=== PATIENT | female | born 1995 ===

== ENCOUNTER 2020-01-03 10:14 | Inpatient (IN) | payer OTHER, SELFPAY ==
[2020-01-03] MEDS: Lactated Ringer's 1,000 ML IV SCH ×2 (10:23→14:05)
[2020-01-03] MEDS ORDERED: Lidocaine 1% (PF) 30 ML VIAL SC PRN (10:33)
[2020-01-03] MEDS ORDERED: Promethazine HCl 25 MG/ML VIAL IM PRN ×2 (10:33→13:29)
[2020-01-03] MEDS ORDERED: Ondansetron PF 4 MG/2 ML Vial IVP PRN ×3 (10:33→17:26)
[2020-01-03] MEDS ORDERED: Docusate 100 MG CAP PO PRN (10:33)
[2020-01-03] MEDS ORDERED: HYDROcodone/Acetaminophen 5/325 mg Tablet PO PRN ×2 (10:33)
[2020-01-03] MEDS ORDERED: NS / Oxytocin 40 units/1000ml 1,000 ML IV PRN (10:33)
[2020-01-03] MEDS ORDERED: hydrALAZINE 20 MG/ML VIAL SLOW IVP PRN ×2 (10:33→17:26)
[2020-01-03] MEDS ORDERED: Butorphanol Tartrate 1 MG/ML VIAL SLOW IVP PRN (10:33)
[2020-01-03] MEDS ORDERED: Misoprostol 200 MCG TAB PR PRN (10:33)
[2020-01-03] MEDS ORDERED: Ibuprofen 800 MG TAB PO PRN (10:33)
[2020-01-03] MEDS ORDERED: Diphenoxylate HCl/Atropine Tablet PO PRN ×2 (10:33)
[2020-01-03] MEDS ORDERED: Acetaminophen 500 MG TAB PO PRN (10:33)
[2020-01-03] MEDS ORDERED: NS w/ Oxytocin 10 units 500 ML IV SCH ×2 (10:45)
[2020-01-03 10:58] VITALS: BMI 36.8
[2020-01-03 11:22] LABS: Hemoglobin 10.2 g/dL (12.0-16.0); Mean Corpuscular HGB CONC 32.3 g/dL (32.0-36.0); Mean Corpuscular Hemoglobin 25.1 pg (27.0-31.0); Mean Corpuscular Volume 77.7 fL (78.0-98.0); Mean Platelet Volume 9.3 fL (7.4-10.4); Platelet Count 316 thou/uL (130-400); RBC Distribution Width 13.8 % (11.5-14.5); Red Blood Cell (RBC) Count 4.06 mill/uL (4.20-5.40); White Blood Cell (WBC) Count 10.9 thou/uL (4.8-10.8)
[2020-01-03 11:38] LABS: HBSAg Index 0.21 S/CO (0-0.99); Hep B Surf Ag Non-Reactive S/CO (NonReactive); Syphilis Antibody Nonreactive (Nonreactive); Syphilis Antibody Index 0.04 S/CO (<1.00 Non-Reactive)
[2020-01-03] MEDS: Ampicillin 2 GM in Sodium Chloride 0.9% 100 ML IVPB SCH (12:47)
[2020-01-03] MEDS ORDERED: Naloxone HCl 0.4 mg/ml Vial IVP PRN ×2 (13:29)
[2020-01-03] MEDS ORDERED: Lactated Ringer's 500 ML IV PRN (13:29)
[2020-01-03] MEDS ORDERED: EPHEDRINE 25 MG/5 ML SYRINGE SLOW IVP PRN (13:29)
[2020-01-03] MEDS ORDERED: diphenhydrAMINE 50 MG/ML VIAL IVP PRN (13:29)
[2020-01-03] MEDS ORDERED: Acetaminophen 325 MG TAB PO PRN (13:29)
[2020-01-03] MEDS ORDERED: Communication Order-Pharmacy FS SCH (13:30)
[2020-01-03] MEDS ORDERED: Fentanyl 4 mcg/Bupivacaine 0.1% Cassette 100 ML EPIDURAL SCH (13:30)
[2020-01-03] MEDS ORDERED: Benzocaine-Menthol 82.5 ML CAN TOP PRN (17:26)
[2020-01-03] MEDS ORDERED: Milk Of Magnesia 30 ML UDCUP PO PRN (17:26)
[2020-01-03] MEDS ORDERED: Bisacodyl 10 MG SUPP PR PRN (17:26)
[2020-01-03] MEDS ORDERED: Preparation H Ointment 28 GM TUBE PR PRN (17:26)
[2020-01-03] MEDS ORDERED: Misoprostol 200 MCG TAB VAG PRN (17:26)
[2020-01-03] MEDS ORDERED: Adacel (T-DAP) 0.5 ML SYRINGE IM ONE (17:26)
[2020-01-03] MEDS ORDERED: Acetaminophen/Codeine 30-300mg Tablet PO PRN ×2 (17:26)
[2020-01-03] MEDS ORDERED: diphenhydrAMINE 25 MG CAP PO PRN (17:26)
[2020-01-03] MEDS ORDERED: Zolpidem Tartrate 5 MG TAB PO PRN (17:26)
[2020-01-03] MEDS ORDERED: Lanolin Ointment 7 GM TUBE TOP PRN (17:26)
[2020-01-03] MEDS ORDERED: NS / Oxytocin 40 units/1000ml 1,000 ML IV SCH (17:30)
[2020-01-03] MEDS ORDERED: Fentanyl 4 mcg/Bup 0.1% Cadd 100 ML ONE (17:47)
[2020-01-03] MEDS: Ibuprofen 800 MG TAB PO SCH (22:03)
[2020-01-03] MEDS: Docusate Calcium (SURFAK) 240 MG CAP PO SCH (22:03)
[2020-01-04 05:33] LABS: Hemoglobin 9.7 g/dL (12.0-16.0); Mean Corpuscular Hemoglobin 26.1 pg (27.0-31.0); Mean Corpuscular Volume 78.9 fL (78.0-98.0); Mean Platelet Volume 8.5 fL (7.4-10.4); Platelet Count 265 thou/uL (130-400); RBC Distribution Width 13.5 % (11.5-14.5); Red Blood Cell (RBC) Count 3.72 mill/uL (4.20-5.40); White Blood Cell (WBC) Count 17.5 thou/uL (4.8-10.8)
[2020-01-04] MEDS: Ampicillin 2 GM in Sodium Chloride 0.9% 100 ML IVPB SCH (06:22)
[2020-01-04] MEDS: Ibuprofen 800 MG TAB PO SCH ×2 (06:22→14:35)
[2020-01-04] MEDS: Docusate Calcium (SURFAK) 240 MG CAP PO SCH (07:41)
[2020-01-04] MEDS ORDERED: Ferrous Sulfate 325 MG TAB PO SCH (08:00)
[2020-01-04] MEDS ORDERED: Prenatal Vitamin 1 TAB PO SCH (09:00)
[2020-01-04 17:40] VITALS: BP 129/95; TEMP 99
== END 2020-01-04 18:13 | disposition home or self-care (01) | DRG 807 ==
LOC: L&D-LIB 10:14 → 3SE 21:43
PROVIDERS: ADMIT Obstetrics & Gynecology; ATTEND Obstetrics & Gynecology
PROC: 10E0XZZ Delivery of Products of Conception, External Approach (ICD-10-PCS; principal; 2020-01-03)
PROC: 10907ZC Drainage of Amniotic Fluid, Therapeutic from Products of Conception, Via Natural or Artificial Opening (ICD-10-PCS; 2020-01-03)
DX: O60.14X0 Preterm labor third trimester with preterm delivery third trimester, not applicable or unspecified (principal); Z37.0 Single live birth; Z3A.36 36 weeks gestation of pregnancy; G43.909 Migraine, unspecified, not intractable, without status migrainosus; O99.824 Streptococcus B carrier state complicating childbirth; O99.613 Diseases of the digestive system complicating pregnancy, third trimester; K21.9 Gastro-esophageal reflux disease without esophagitis; O99.353 Diseases of the nervous system complicating pregnancy, third trimester; Z79.899 Other long term (current) drug therapy; Z79.82 Long term (current) use of aspirin
CPT/HCPCS: 36415; 51702; 85027; 86780; 86850; 86900; 86901; 87340; J0290; J2590; J3490